=== PATIENT | male | born 1955 | race Caucasian/White ===

== ENCOUNTER → 2017-07-28 | Outpatient (CLI) | payer BC ==
[2017-07-28 08:03] LABS: CREATININE 0.8 mg/dL (0.7-1.3)
== END ==
LOC: CAT 06:57
PROVIDERS: Family Medicine
DX: R10.9 Unspecified abdominal pain (principal)

== ENCOUNTER 2017-08-12 05:20 | Day surgery (SDC) | payer BC ==
[~2017-08-12] VITALS: Ht 167.6 cm; Wt 83.9 kg
--- NOTE | ~2017-08-12 | O ---
[facility] [place] [address] OPERATIVE REPORT Name: JERRI PEREZ Room #: 150-14 [facility]..#: [id number] Admission: 08/12/17 Attend Phys: Bernardo Sofia MD, F Discharge: Date of : 53 Report #: [id number] THIS REPORT FOR: //name// CC: Daniel Sofia DATE OF SERVICE: 08/12/2017 PREOPERATIVE DIAGNOSES: 1. Appendiceal mass. 2. Anxiety. POSTOPERATIVE DIAGNOSES: 1. Appendiceal mass. 2. Incarcerated umbilical hernia. 3. Anxiety. PROCEDURES: 1. Laparoscopic appendectomy. 2. Modifier 22 -- the appendix was tightly adherent to the right lateral abdominal sidewall as well as to the terminal ileum and retroperitoneum. Dissection of the appendix was quite difficult, especially as the appendix was friable. This operation took 3 times longer than the usual laparoscopic appendectomy. 3. Laparoscopic lysis of adhesions. 4. Laparoscopic repair of incarcerated umbilical hernia. SURGEON: Bernardo Sofia MD. ANALYTIC PROGRAMMER: None. ANESTHESIA: General endotracheal anesthesia and local anesthetic. ESTIMATED BLOOD LOSS: 50 mL. SPECIMEN: Appendix. COMPLICATIONS: None appreciated. INDICATION FOR PROCEDURE: This is a 62-year-old male patient who presented to Dr. Gallagher with abdominal pain in his right lower quadrant over the past couple of months. He denies fever or chills and has had no significant change in his bowel habits. CT of the abdomen and pelvis revealed a peripherally enhancing mass in the expected location of the appendix with the leading diagnosis of chronic appendicitis; however, appendiceal malignancy or neoplasm with mucocele was unable to be ruled out. A small amount of fluid and adjacent [facility] [address] [place] [address] OPERATIVE REPORT Name: JERRI PEREZ Room #: 150-14 [facility]#: [id number] Admission: 08/12/17 Attend Phys: Bernardo Sofia MD, F Discharge: Date of : 53 Report #: [id number] inflammatory change was present. The patient has a positive family history for colon cancer in his father who developed his cancer at 80 years old. The patient has been current on his colonoscopies. He presents now for laparoscopic appendectomy. OPERATIVE FINDINGS: Upon entrance into the abdominal cavity, the appendix was tightly adherent to the right lateral abdominal sidewall as well as to the terminal ileum and retroperitoneum. A portion of the inflammatory change was also adherent to the cecum. The dissection was quite difficult as the appendix itself was friable and difficult to grasp. The inflammatory change extended to the sidewall and into the retroperitoneum. The vessels and ureter were able to be visualized and were protected throughout the operation. No other significant intraabdominal pathology was identified. The small bowel was run proximally and there was no evidence for Meckel's diverticulum. The only other pathology identified was that of an incarcerated umbilical hernia at the umbilicus. This was repaired with a separate xkvybp-ni-zzpyt 0 PDS suture with good closure of the defect. The hernia itself was incarcerated with preperitoneal fat. DESCRIPTION OF PROCEDURE IN DETAIL: After the risks, benefits, and expectations of the operation were discussed in detail with the patient, informed consent was obtained. The patient was identified in the preoperative holding area. He was given IV antibiotics as documented in the chart in line with SCIP metrics. The patient was then taken to the operating room and he was placed in the supine position. SCDs were placed on the patient's bilateral lower extremities and pneumatic compression was initiated. The patient was then given IV sedation and he was intubated without incident. A time-out was performed to identify the correct patient and procedure after prepping and draping the patient in the standard sterile fashion. Local anesthetic was infiltrated into the skin and subcutaneous tissue infraumbilically where a curvilinear incision was made with #15 blade scalpel. Dissection was carried down to the fascia. A small elida was then made in the fascia and the 12 mm Visiport was placed intraperitoneally with a 0-degree angled laparoscope. Pneumoperitoneum was achieved with insufflation of carbon dioxide to 15 mmHg. A 30-degree angled laparoscope was inserted. The patient was placed in the Trendelenburg position. A suprapubic 5 mm and left lower quadrant 5 mm port were each placed under direct visualization after local anesthetic was infiltrated into the skin and subcutaneous tissue and appropriately sized incisions were made. The patient was then rotated to his left with his right side up. Findings were as noted above. The mass was grasped and its connections to the right lateral sidewall were carefully taken down with sharp dissection and blunt dissection. This continued medially where the mass was stuck to the terminal ileum. More proximally, the base of the appendix was able to be identified. A window was made in the mesoappendix and a blue load endoscopic MIRELA stapler was used to [facility] [address] [place] [address] OPERATIVE REPORT Name: JERRI PEREZ #: 150-14 [id number] Admission: 08/12/17 Attend Phys: Bernardo Sofia MD, F Discharge: Date of : 53 Report #: [id number] staple and divide the appendix. The appendix was then dissected out of the area with the ultrasonic dissector to divide the mesoappendix. This was carried distally down to the mass where it was more adherent to the retroperitoneum. This was carefully dissected out of the retroperitoneum with blunt dissection and sharp dissection and with judicious use of the ultrasonic dissector. The vessels and what appeared to be the ureter were identified and protected. The mass was dissected free. It was more friable where it was adherent to the small bowel. The mass itself was removed in a piecemeal fashion and placed in an Endopouch. The part of the appendix that was adherent to the terminal ileum was carefully dissected away with sharp dissection and the veil of Luis Antonio was divided with the ultrasonic dissector with good hemostasis. This was placed in the Endopouch as well. The appendix and mesoappendix were removed through the infraumbilical port site. While doing so, the incarcerated umbilical hernia defect was identified. The hernia content was dissected out of the defect to clearly identify the defect. A cxmnsj-tx-trsek 0 PDS suture was placed to close the defect. The suture was tied under direct visualization to ensure no incorporation of intraabdominal content. An 0 PDS suture was also placed to approximate the 12 mm port site fascial opening. The suture was tagged and the port was replaced. The abdominal cavity was then reentered. The abdominal cavity was irrigated and suctioned until return of all drainage ran clear. The raw area of the right lateral abdominal sidewall was slightly oozing. Hemoclips were placed around the periphery of where the mass was adherent to the right lateral sidewall. Three total clips were placed. FloSeal was then applied to the raw surface for hemostasis. The small-bowel was run backwards at least 3 feet and there was no evidence for a Meckel's diverticulum. No other significant findings were present. The 12 mm port was removed and the suture was tied under direct visualization to ensure no incorporation of intraabdominal content. The abdominal cavity was then desufflated and the remaining ports were removed. Interrupted subcuticular 4-0 Monocryl sutures and Dermabond were used to close the skin incisions. The patient tolerated the procedure well. He was awakened, extubated, and taken to the recovery room in stable condition with no apparent intraoperative complications. <ELECTRONICALLY SIGNED> By: Bernardo Sofia MD, FACS 08/12/17 [id number] Bernardo Sofia MD, FACS /nt
--- NOTE | ~2017-08-12 | S ---
[facility] [place] [address] [place] [address] SURGICAL PATH RPT PROCEDURE Name: JERRI PEREZ Room #: DEP [facility].#: [id number] Admission: 08/12/17 Date of : 53 Discharge: 08/12/17 Report #: [id number] Path Case #: [id number] PATHOLOGY REPORT COLLECTION DATE: 08/12/2017 RECEIVED DATE: 08/12/2017 SUBMITTING PHYS: Dr. Bernardo Sofia OTHER PHYS: Dr. Daniel Gallagher ADDENDUM REPORT (Order Date: 08/14/2017 11:53) ADDENDUM COMMENT: Per the discussion with Dr. Charles Sofia, mismatch repair (MMR) protein immunohistochemical staining was performed. Reason for testing: To evaluate for evidence of defective mismatch repair proteins. Method: Immunohistochemical staining for the presence or absence of protein expression of one or more of the following MMR protein markers: MLH1, MSH2, MSH6 and PMS2. Tumor type: Invasive poorly differentiated adenocarcinoma Results: MLH1 - Preserved MSH2 - Preserved MSH6 - Preserved PMS2 - Preserved Mismatch Repair Status: MMR Proficient (MMR-P) Interpretation: (MMR-P) All four MMR proteins are preserved within tumor cells. This suggests the presence of normal DNA mismatch repair function within the tumor and an observable defect in mismatch repair is not identified. The likelihood that this patient has an inherited germline mutation syndrome due to defective mismatch repair is reduced but not totally eliminated. If the patient has a strong personal or family history of HPNCC/Murray syndrome related cancers (colorectal, endometrial, gastric, ovarian, pancreatic, ureter/renal pelvis, biliary tract, brain, small bowel and [place]-Juli[place] syndrome), consider MSI testing by PCR methodology. Suggest clinical correlation and follow up. These test results are designed for screening purposes only and are useful tools in identifying cancer patients that are more likely to have Murray Syndrome related diagnoses. Tests should be interpreted in the context of clinical findings, family history and laboratory data. Abnormal IHC results for MMR protein expression are not considered diagnostic for Murray Syndrome. (IUV:mgr; 08/14/2017) Professional services performed by [facility] at [address] [address] SURGICAL PATH RPT PROCEDURE Name: JERRI PEREZ Room #: DEP [facility] [place] M.R.#: [id number] Admission: 08/12/17 Date of : 53 Discharge: 08/12/17 Report #: [id number] Path Case #: [id number] [address] [place] [address] Technical [facility] performed by [facility] at [address] [place] [address], [address] [place] [address]. ELECTRONICALLY SIGNED BY: Delmis Vizcaino M.D. 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 - Proximal margin negative and uninvolved by dysplasia or malignancy. (IUV:melisa; 08/13/2017) SPECIMEN Specimen: Appendix Procedure: Appendectomy TUMOR Primary Tumor Site: Diffusely involving appendix Histologic Type: Adenocarcinoma Histologic Grade: Grade 3 (poorly differentiated) Tumor Size: Greatest dimension (cm): 4.5 Tumor Deposits: Not identified Tumor Extent Microscopic Tumor Extension: Tumor penetrates serosa (visceral peritoneum) Accessory Tumor Findings Lymph-Vascular Invasion: Not identified Perineural Invasion: Not identified MARGINS All margins uninvolved by invasive carcinoma Distance of Tumor From Closest Margin: Specify (mm): 1 Specify Margin: Proximal Proximal Margin: Uninvolved by invasive carcinoma 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 Mesenteric Margin: Not applicable Other Margin(s): Other margins assessed Specify Margin(s): Specify margin: serosal surface Margin Status: Involved by invasive carcinoma [address] [address] SURGICAL PATH RPT PROCEDURE Name: JERRI PEREZ [facility] [id number] Admission: 08/12/17 Date of : 53 Discharge: 08/12/17 Report #: [id number] Path Case #: [id number] LYMPH NODES Regional Lymph Nodes: No nodes submitted or found STAGE (PTNM) Primary Tumor (pT): pT4a: Tumor penetrates visceral peritoneum, including mucinous peritoneal tumor within the right lower quadrant Regional Lymph Nodes (pN): pNX: Cannot be assessed Distant Metastasis (pM): Not applicable - pM cannot be determined from the submitted specimen(s) ADDITIONAL FINDINGS Additional Pathologic Findings: None identified SPECIAL STUDIES Ancillary Studies: Performed: MSI markers (4 immunohistochemical stains) ordered on block A2 COMMENT: Co-review: Dr. Jazzy Browne (slide A2 and A4). Findings are discussed with Dr. Charles Sofia at 11:54 a.m. on 08/13/2017. Per the discussion with Dr. Sofia, MSI markers (four immunohistochemical stains) are ordered on block A2 and the results of this will be reported in an addendum to follow. (IUV:melisa; 08/13/2017) PATHOLOGIST: Delmis Vizcaino M.D. REPORT ELECTRONICALLY SIGNED BY: Delmis Vizcaino M.D. DATE/TIME: 08/13/2017 16:29 * * * * * * * * * * * * GROSS PATHOLOGY: The specimen is received in formalin, labeled "Jerri Valerioed and appendix", are multiple irregular fragment of merida and hemorrhagic soft tissue with attached adipose tissue containing apparent portion of appendix measuring 4.7 x 4.0 x 2.0 cm. The appendiceal resection margin is closed by a staple line this will be inked black. The recognizable serosal surface is predominantly hemorrhagic. The distal appendix is not identified. Several fragments show friable merida-pink soft tissue. Commercial Account Manager sections submitted in A1-A5 as follows: A1 proximal appendix A2 possible mid appendix A3-5 appendiceal wall with friable lang white soft tissue (mass) (SWS; 08/12/2017) [address] [address] SURGICAL PATH RPT PROCEDURE Name: JERRI PEREZ Room #: [facility] Antwon#: [id number] Admission: 08/12/17 Date of : 53 Discharge: 08/12/17 Report #: [id number] Path Case #: [id number] CLINICAL HISTORY: Appendix neoplasm, Laparoscopic with lysis of adhesions, hernia umbilical INITIAL CPT CODE(S): A; 51420, 64805, 93704, 93912, 76178 Professional services performed by [facility] at [facility] [address] [place] [address] Technical services performed by [facility] at [address] [place] [address], [facility] [address], [place] [address]. [facility] [address] [place] [address] PHONE: [phone] DIRECTOR: Sunny Us M.D. * * * END OF REPORT * * *
[~2017-08-12 05:20] MED LIST: ASPIR 8181 MG PO; LEXAPRO20 MG PO; LIPITOR10 MG PO; MULTIVITAMINS1 EAC7 PO; RISPERDAL 1 MG T1 MG PO
[2017-08-12 07:00] VITALS: BP 123/73
[2017-08-12] MEDS ORDERED: HYDROCODONE-AP1 EAC6 PO (09:44)
[2017-08-12] MEDS ORDERED: AUGMENTIN 875-1 EACH PO (09:44)
[2017-08-12] MEDS ORDERED: SENNA-S TABLET1 EACH PO (09:44)
[2017-08-12 09:52] VITALS: BP 123/73
== END 2017-08-12 09:46 | disposition home or self-care (01) ==
LOC: TBA 05:20 → OR 05:20
DX: K38.8 Other specified diseases of appendix (principal); K42.0 Umbilical hernia with obstruction, without gangrene; E78.00 Pure hypercholesterolemia, unspecified; G47.33 Obstructive sleep apnea (adult) (pediatric); F32.89 Other specified depressive episodes; F41.8 Other specified anxiety disorders; Z96.641 Presence of right artificial hip joint; Z87.891 Personal history of nicotine dependence; Z98.41 Cataract extraction status, right eye; Z98.42 Cataract extraction status, left eye; Z96.1 Presence of intraocular lens; Z98.890 Other specified postprocedural states; Z79.82 Long term (current) use of aspirin; Z79.899 Other long term (current) drug therapy
CPT/HCPCS: 50010; 50101; 50249; 50411; 50555; 50558; 50739; 50740; 50900; 50962; 51489; 51751; 51975; 52265; 53307; 54022; 54118; 55245; 56462; 56526; 56527; 62110; 62900